=== PATIENT | female | born 1995 | race Caucasian/White ===

== ENCOUNTER → 2017-09-18 | Outpatient (CLI) | payer OTHER ==
[~2017-09-18] MED LIST: CEFU500 PO; CIPR500 PO; ESCI10 PO; GLIM2 PO; GLIP2.5ER; INSULANPEN SC; Janumet 50-1,01 EACH PO; LEVEMIR FL100 UNIT/1 SC; METF500 PO; Macrobid 100 M100 MG PO; ONDA4ODT MM; PARO20 PO; Pyridium100 MG PO; RXHYD5325 PO; RXONDA4ODT MM; SERT100 PO; SERT25 PO; Zofran Odt4 MG PO; [UNRECOGNIZED DRUG - OTHER] SC; [UNRECOGNIZED DRUG - REMARK]
[2017-09-18 08:15] LABS: BASOPHILS ABSOLUTE AUTO 0.08 K/mm3 (0.00-0.23); BASOPHILS PERCENT AUTO 1 % (0-2); EOSINOPHILS ABSOLUTE AUTO 0.14 K/mm3 (0.00-0.68); EOSINOPHILS PERCENT AUTO 1 % (0-6); Hematocrit 38.5 % (33.0-51.0); Hemoglobin 13.2 g/dL (11.5-16.0); IMMATURE GRAN ABSOLUTE AUTO 0.04 K/mm3 (0.00-0.10); IMMATURE GRAN PERCENT AUTO 0 % (0-1); LYMPHOCYTES ABSOLUTE AUTO 4.78 K/mm3 (0.84-5.20); LYMPHOCYTES PERCENT AUTO 37 % (21-46); MONOCYTES ABSOLUTE AUTO 0.72 K/mm3 (0.16-1.47); MONOCYTES PERCENT AUTO 6 % (4-13); Mean Corpuscular HGB 28.1 pg (26.0-34.0); Mean Corpuscular HGB Conc 34.3 g/dL (31.5-36.5); Mean Corpuscular Volume 82 fL (80-100); Mean Platelet Volume 10.1 fL (9.1-12.4); NEUTROPHILS ABSOLUTE AUTO 7.23 K/mm3 (1.96-9.15); NEUTROPHILS PERCENT AUTO 56 % (41-73); Platelet Count 342 K/mm3 (150-400); RDW Coefficient Variation 11.9 % (11.7-14.2); RDW Standard Deviation 34.9 fL (35.1-46.3); Red Blood Cell Count 4.69 M/mm3 (3.80-5.20); White Blood Cell Count 12.99 K/mm3 (4.00-11.30)
[2017-09-18 08:27] LABS: Alanine Aminotransfer (ALT/SGP 26 U/L (12-78); Albumin, Blood 3.9 g/dL (3.4-5.0); Albumin/Globulin Ratio 1.1 (0.8-1.8); Alk Phos 50 U/L (40-126); Anion Gap 10 mmol/L (6-16); Aspartate Aminotrans (AST/SGOT 14 U/L (12-37); Bilirubin, Total 0.2 mg/dL (0.1-1.0); Blood Urea Nitrogen 19 mg/dL (8-24); Bun/Creatinine Ratio 28.4 (12.0-20.0); CO2, Blood 26 mmol/L (21-32); Chloride, Blood 100 mmol/L (98-108); Creatinine, Blood 0.67 mg/dL (0.40-1.00); Globulin, Blood 3.7 g/dL (2.2-4.0); Glomerular Filtration Rate >60 (60-); Glucose, Blood 279 mg/dL (70-99); Potassium, Blood 3.9 mmol/L (3.5-5.5); Sodium, Blood 136 mmol/L (136-145); Total Protein, Blood 7.6 g/dL (6.4-8.2)
== END | disposition home or self-care (01) ==
LOC: LAB EV 08:11
PROVIDERS: Physician Assistant
DX: E10.9 Type 1 diabetes mellitus without complications (principal)
CPT/HCPCS: 80053; 83036; 85025

== ENCOUNTER 2021-11-05 11:43 | Emergency (ER) | payer OTHER ==
[~2021-11-05] VITALS: Ht 157.5 cm; Wt 90.7 kg
[2021-11-05] MEDS ORDERED: Amoxicillin500 MG PO (12:07)
== END 2021-11-05 12:09 | disposition home or self-care (01) ==
LOC: ER 11:43
DX: K04.7 Periapical abscess without sinus (principal); E11.9 Type 2 diabetes mellitus without complications; F17.210 Nicotine dependence, cigarettes, uncomplicated; Z79.2 Long term (current) use of antibiotics; Z79.899 Other long term (current) drug therapy
CPT/HCPCS: 99282

== ENCOUNTER → 2022-02-06 | Outpatient (CLI) | payer OTHER ==
[~2022-02-06] MED LIST changes: +Amoxicillin500 MG PO
[2022-02-06 13:45] LABS: BASOPHILS ABSOLUTE AUTO 0.05 K/mm3 (0.00-0.23); BASOPHILS PERCENT AUTO 1 % (0-2); EOSINOPHILS ABSOLUTE AUTO 0.15 K/mm3 (0.00-0.68); EOSINOPHILS PERCENT AUTO 2 % (0-6); Hematocrit 41.8 % (33.0-51.0); Hemoglobin 13.5 g/dL (11.5-16.0); IMMATURE GRAN ABSOLUTE AUTO 0.03 K/mm3 (0.00-0.10); IMMATURE GRAN PERCENT AUTO 0 % (0-1); LYMPHOCYTES ABSOLUTE AUTO 2.59 K/mm3 (0.84-5.20); LYMPHOCYTES PERCENT AUTO 28 % (21-46); MONOCYTES ABSOLUTE AUTO 0.38 K/mm3 (0.16-1.47); MONOCYTES PERCENT AUTO 4 % (4-13); Mean Corpuscular HGB 27.2 pg (26.0-34.0); Mean Corpuscular HGB Conc 32.3 g/dL (31.5-36.5); Mean Corpuscular Volume 84 fL (80-100); Mean Platelet Volume 9.5 fL (9.1-12.4); NEUTROPHILS ABSOLUTE AUTO 5.98 K/mm3 (1.96-9.15); NEUTROPHILS PERCENT AUTO 65 % (41-73); Platelet Count 413 K/mm3 (150-400); RDW Coefficient Variation 12.4 % (11.7-14.2); RDW Standard Deviation 37.7 fL (35.1-46.3); Red Blood Cell Count 4.97 M/mm3 (3.80-5.20); White Blood Cell Count 9.18 K/mm3 (4.00-11.30)
[2022-02-06 14:37] LABS: Alanine Aminotransfer (ALT/SGP 14 U/L (12-78); Albumin, Blood 3.9 g/dL (3.4-5.0); Albumin/Globulin Ratio 1.2 (0.8-1.8); Alk Phos 51 U/L (50-136); Anion Gap 8 mmol/L (6-16); Aspartate Aminotrans (AST/SGOT 7 U/L (12-37); Bilirubin, Total 0.5 mg/dL (0.1-1.0); Blood Urea Nitrogen 15 mg/dL (8-24); Bun/Creatinine Ratio 28.7 (12.0-20.0); CO2, Blood 25 mmol/L (21-32); Chloride, Blood 104 mmol/L (98-108); Cholesterol 133 mg/dL (50-200); Creatinine, Blood 0.52 mg/dL (0.40-1.00); Ferritin, Serum 27 ng/mL (8-252); Globulin, Blood 3.2 g/dL (2.2-4.0); Glomerular Filtration Rate 131 (60-); Glucose, Blood 243 mg/dL (70-99); HDL Cholesterol 45 mg/dL (>39); Iron Serum 75 ug/dL (50-170); LDL/HDL RATIO 1.8; Low Density Lipoprotein Chol 79 mg/dL (0-110); Percent Saturation 27.2 % (15.0-50.0); Potassium, Blood 4.5 mmol/L (3.5-5.5); Sodium, Blood 137 mmol/L (136-145); Thyroid Stimulating Hormone 0.417 uIU/mL (0.360-4.800); Total Iron Binding Capacity 276 ug/dL (250-450); Total Protein, Blood 7.1 g/dL (6.4-8.2); Triglycerides 44 mg/dL (30-140); Very Low Density Lipoprot Chol 8 mg/dL (6-28)
== END ==
LOC: LAB SHORT 11:18
PROVIDERS: Family Medicine
DX: Z11.59 Encounter for screening for other viral diseases (principal); D50.8 Other iron deficiency anemias; D64.9 Anemia, unspecified; E11.9 Type 2 diabetes mellitus without complications
CPT/HCPCS: 80053; 80061; 82043; 82607; 82728; 82746; 83036; 83540; 83550; 84443; 85025; 86803